=== PATIENT | male | born 1955 | race Caucasian/White ===

== ENCOUNTER → 2017-05-22 | Outpatient (CLI) | payer OTHER ==
--- NOTE | ~2017-05-22 | CT55 ---
[facility] A Service [facility] RADIOLOGY TEXT RESULTS PATIENT: MEL PERES LOCATION: [facility] : 51 UNIT #: [id number] AGE: [address]: Alonso Walker MD SEX: M ORDER DR: [id number] [place] [id number] O MR#: [id number] Acc #: [id number] NAME: MEL PERES : 1955 SEX: M STUDY DATE/TIME: 05/22/2017 13:01 UNIT: [facility] ROOM: STUDY DESCRIPTION: CT Chest W Con Attending Physician: Alonso Walker M.D. Referring Physician: Alonso Walker M.D. Ordering Physician: Alonso Walker M.D. Primary Care Physician: Alonso Walker M.D. MEDICAL IMAGING REPORT This report is preliminary unless electronic signature is present. EXAM CT chest INDICATION Abnormal lung cancer screening. Right upper lobe pulmonary nodule. Intrabronchial nodule. TECHNIQUE CT scan of the thorax with contrast. Coronal and sagittal reconstructions were obtained. This CT exam was performed with one or more of the following radiation dose reduction techniques: automatic exposure control, adjustment of mA and/or kV according to patient size, and iterative reconstruction. COMPARISON CT lung cancer screening 11/17/2016. FINDINGS The small nodule in the right bronchus intermedius has resolved. No new or suspicious pulmonary findings. There is mild emphysema. Central airways are patent. No pericardial pleural effusion. Thoracic aorta is normal in size. No enlarged mediastinal or hilar lymph nodes. IMPRESSION 1. Negative CT of the chest. 2. The small endobronchial lesion has resolved indicating this was a benign process such as retained secretions. 3. ACR Lung-RADS classification 1: Negative examination. RECOMMENDATIONS: [facility] A Service [facility] RADIOLOGY TEXT RESULTS PATIENT: MEL PERES LOCATION: [facility] : 51 UNIT #: [id number] AGE: [address]: Alonso Walker MD SEX: M ORDER DR: 1. Return to annual lung cancer screening with a low-dose chest CT. 2. Lung cancer screening should be performed in May 2018. Dictated by... Russell Silva M.D. THIS IS AN ELECTRONICALLY VERIFIED REPORT Russell Silva M.D. at 05/23/2017 9:14 AM JOSH/messi TD: 05/23/2017 05:15 JOB #: [id number] MEDICAL IMAGING REPORT Page 1 of 1
[2017-05-22 12:55] LABS: POC - GFR >60.0 mL/min (>60)
== END | disposition home or self-care (01) ==
LOC: SCT 05-17 13:00
PROVIDERS: Family Medicine
DX: R91.1 Solitary pulmonary nodule (principal)
CPT/HCPCS: 71260; 82565; Q9967